=== PATIENT | male | born 1935 | race Caucasian/White ===

== ENCOUNTER → 2016-05-15 | Outpatient (CLI) | payer MEDICARE ==
[~2016-05-15] MED LIST: ARNICA TOPICAL GEL 1.5OZ TUBE. TP ONE; CEPHALEXIN 250 MG CAPSULE ONE; DIAZEPAM 10 MG TABLET ONE; IV NORMAL SALINE 1000ML BAG 1,000 ML ONE; LIDOCAINE 1%/EPI 1:100,000 20 ML VIAL. ONE; SODIUM BICARBONATE 50 MEQ/50 ML VIAL. ONE
== END | disposition home or self-care (01) ==
LOC: PCVCINTER 11:15
PROVIDERS: ATTEND Nuclear Medicine Nuclear Cardiology
DX: I87.2 Venous insufficiency (chronic) (peripheral) (principal); I87.322 Chronic venous hypertension (idiopathic) with inflammation of left lower extremity; M79.89 Other specified soft tissue disorders; I25.10 Atherosclerotic heart disease of native coronary artery without angina pectoris; I77.9 Disorder of arteries and arterioles, unspecified; E78.00 Pure hypercholesterolemia, unspecified
CPT/HCPCS: 36478; C1751; C1769; C1894; J3490; J7030